=== PATIENT | male | born 1970 | race Caucasian/White ===

== ENCOUNTER 2017-12-11 16:03 | Emergency (ER) | payer OTHER ==
[2017-12-11 16:09] VITALS: BP 146/100; PULSE 103; TEMP 98; BMI 25.0
[2017-12-11] MEDS ORDERED: IBUPROFEN 600 MG TABLET (FP) PO ONE ×2 (16:39→16:46)
[2017-12-11] MEDS ORDERED: DIPHTH,PERTUSS(ACELL),TET 0.5 ML DISP.SYRIN IM ONE (16:39)
--- NOTE | 2017-12-11 16:41 | PDOC ---
History of Present Illness - General Chief Complaint: Injury Stated Complaint: LEFT LEG PAIN JOB INJURY Time Seen by Provider: 12/11/17 16:34 History Source: Patient Exam Limitations: No Limitations - History of Present Illness Initial Comments: 12/11/17 16:36 left great toe, dropped heavy metal ground plate onto foot- was weraing work boots, injury occurred while at work today. 12/11/17 16:41 Occurred: reports: this morning Severity: reports: mild, moderate Pain Location: reports: lower extremity Method of Injury: Yes: direct blow Modifying Factors: improves with: None Associated Symptoms (Fall): denies symptoms Past History - Travel Traveled outside of the country in the last 30 days: No Close contact w/someone who was outside of country & ill: No - Past Medical History Allergies/Adverse Reactions: Allergies Allergy/AdvReac Type Severity Reaction Status Date / Time No Known Allergies Allergy Verified 12/11/17 16:06 Home Medications: Ambulatory Orders Cephalexin Monohydrate [Keflex -] 500 mg PO Q8H #21 capsule 12/11/17 Oxycodone HCl/Acetaminophen [Percocet 5-325 mg Tablet -] 1 - 2 tab PO Q4H PRN # 7 tablet MDD 4 12/11/17 COPD: No - Surgical History Abdominal Surgery: Yes (colon preforation) Neurologic Surgery: Yes (brain bleed) - Suicide/Smoking/Psychosocial Hx Smoking History: Never smoked Have you smoked in the past 12 months: No Information on smoking cessation initiated: No Hx Alcohol Use: No Drug/Substance Use Hx: No Substance Use Type: None Review of Systems - Review of Systems Able to Perform ROS?: Yes Is the patient limited Chadian proficient: Yes Constitutional: Yes: See HPI. No: Symptoms Reported HEENTM: No: Symptoms Reported Respiratory: No: Symptoms reported Musculoskeletal: Yes: Symptoms Reported, See HPI, Joint Pain Integumentary: Yes: Symptoms Reported, See HPI, Bruising (left toe ), Lesions Neurological: Yes: Symptoms reported, See HPI, Tingling (to toe) All Other Systems: Reviewed and Negative *Physical Exam - Vital Signs Last Vital Signs Temp Pulse Resp BP Pulse Ox 98.0 F 103 H 18 146/100 100 12/11/17 16:07 12/11/17 16:07 12/11/17 16:07 12/11/17 16:07 12/11/17 16:07 - Physical Exam General Appearance: Yes: Nourished, Appropriately Dressed, Apparent Distress, Moderate Distress HEENT: positive: ALEXANDER, Normal ENT Inspection, TMs Normal, Pharynx Normal Neck: positive: Tender Musculoskeletal: negative: Normal Inspection, CVA Tenderness Extremity: positive: Tender. negative: Normal Capillary Refill, Normal Inspection, Normal Range of Motion (limited ) Integumentary: positive: Pale, Ecchymosis (circumfrential brusinng and unabke to move toe. ), Bruising (with abrasion- propb burst laceration to dorsum of great toe., ) Neurologic: positive: director of corporate strategy II-XII NML intact, Fully Oriented, Alert, Normal Mood/ Affect, Normal Response, Motor Strength 07/17 ED Treatment Course - RADIOLOGY Radiology Studies Ordered: Category Date Time Status TOE(S) LEFT [RAD] Stat Radiology 12/11/17 16:35 Ordered Comments: comminuted fracture distal phalanx left great toe Progress Note - Progress Note Progress Note: Xray - comminuted fracture of left distal phalanx great toe, with some lacerations equal and fracture. Started on Keflex 500 mg and given first dose here. Tetanus/diphtheria/pertussis booster updated today, given #7 Percocet tablet prescription and will have follow-up at primary care clinic *DC/Admit/Observation/Transfer Diagnosis at time of Disposition: Open fracture of great toe of left foot Qualifiers: Encounter type: initial encounter Phalanx: distal Fracture alignment: nondisplaced Qualified Code(s): S92.425B - Nondisplaced fracture of distal phalanx of left great toe, initial encounter for open fracture - Discharge Dispostion Disposition: HOME Condition at time of disposition: Stable Decision to Admit order: No - Prescriptions Prescriptions: Cephalexin Monohydrate [Keflex -] 500 mg PO Q8H #21 capsule Oxycodone HCl/Acetaminophen [Percocet 5-325 mg Tablet -] 1 - 2 tab PO Q4H PRN # 7 tablet MDD 4 PRN Reason: Pain - Referrals Referrals: Amanuel Glvoer MD [Staff Physician] - - Patient Instructions Printed Discharge Instructions: DI for Toe Fracture Additional Instructions: Rest, ice to area on and off for 15 minutes 4-6 times a day Avoid heavy lifting or exercise until pain and swelling is resolved or until further directed Keep area highly elevated to reduce swelling Use splints/Ryan wrap as directed Followup with orthopedist in one to 2 days if not improving, if significantly improved may wait one week for followup with orthopedist May use ibuprofen 2-200 mg tablets every 6 hours as needed for pain May use Percocet one tablet every [address] Amanuel Glover has orthopedic clinic hours for Medicare/Medicaid Orthopedic referral patients Office is located on [facility] ; call for appointment Clinic is open Wednesdays from 9 AM to 12 noon and afternoon from to 4pm - Post Discharge Activity Forms/Work/School Notes: Back to Work
[2017-12-11] MEDS ORDERED: CEPHALEXIN MONOHYDRATE 500 MG CAPSULE (UD) PO ONE (16:52)
[2017-12-11] MEDS ORDERED: CEPHALEXIN MONOHYDRATE 500 MG CAPSULE (UD) ONE (16:53)
[2017-12-11] MEDS ORDERED: BACITRACIN 15 GM TUBE TOPICAL OINTMENT ONE (17:07)
== END 2017-12-11 17:32 | disposition home or self-care (01) ==
LOC: JERFT 16:03
PROC: 3E0234Z Introduction of Serum, Toxoid and Vaccine into Muscle, Percutaneous Approach (ICD-10-PCS; principal; 2017-12-11)
DX: S92.425B Nondisplaced fracture of distal phalanx of left great toe, initial encounter for open fracture (principal); W20.8XXA Other cause of strike by thrown, projected or falling object, initial encounter; Y93.89 Activity, other specified; Y92.69 Other specified industrial and construction area as the place of occurrence of the external cause; Y99.0 Civilian activity done for income or pay
CPT/HCPCS: 73660-TC-LT-FY; 90715; 99282-25

== ENCOUNTER 2019-11-30 07:31 | Emergency (ER) | payer SELFPAY ==
[2019-11-30 07:35] VITALS: BP 151/94; PULSE 90; TEMP 98.2; BMI 27.4
--- NOTE | 2019-11-30 08:50 | PDOC ---
Attending Attestation - Resident Resident Name: Julio Velasquez - ED Attending Attestation I have performed the following: I have examined & evaluated the patient, The case was reviewed & discussed with the resident, I agree w/resident's findings & plan, Exceptions are as noted - HPI HPI: 11/30/19 10:13 Agree with resident HPI - Physicial Exam PE: 11/30/19 10:15 Agree with resident exam - Medical Decision Making 11/30/19 08:55 48yo M hx ?bowel perforation s/p ex lap presents to the ED with rectal pain No systemic sxs of infection. +dyschezia Exam with perianal induration and tenderness w/o fluctuation at 9 o'clock, but also notable is possible tract in perianal region at 12 o'clock. Could also be scarring from previous incision and drainage. No draining on exam today. Given report of intermittent abd pain, and uninsured pt, plan for CTAP w PO/IV contrast to r/o deep tract or infection or even possible IBD Plan for: -labs -CTAP -IV clinda -reassess Discharge - Discharge Information Condition: Stable - Follow up/Referral - Patient Discharge Instructions - Post Discharge Activity
[2019-11-30 09:03] LABS: BASO % 0.2 % (0-2.0); EOS % 0.2 % (0-4.5); HEMATOCRIT 42.5 % (35.4-49); HEMOGLOBIN 14.6 GM/dL (11.7-16.9); LYMPH % 7.7 % (8-40); MCH 30.4 pg (25.7-33.7); MCHC 34.4 g/dl (32.0-35.9); MEAN CELL VOLUME 88.6 fl (80-96); MONO % 10.5 % (3.8-10.2); NEUT % 81.4 % (42.8-82.8); PLATELET COUNT 258 K/MM3 (134-434); RDW 12.6 % (11.9-15.9); WHITE BLOOD COUNT 11.6 K/mm3 (4.0-10.0)
--- NOTE | 2019-11-30 09:24 | PDOC ---
History of Present Illness - General Chief Complaint: Hemorrhoids Stated Complaint: Hemorrhoids Time Seen by Provider: 11/30/19 08:09 History Source: Patient Exam Limitations: No Limitations - History of Present Illness Initial Comments: 11/30/19 09:19 PCP: None HPI: 48yo M pmh hemorrhoids (thrombosis with incision at OSH previously), colon perforation s/p resection, presenting with 1 day of rectal pain. Patient reports 1 day of rectal pain c/w prior hemorrhoid pain, small amount of bright red blood on the toilet tissue. Tried a topical witch juanita and a sitz bath with only partial relief. The pain is worse when he walks. Normal BMs, no abdominal pain, minimal pain with defecation, no dysuria. Patient is uninsured, does not follow with a PCP or GI. Denies fevers, chills, nausea, vomiting, chest pain, SOB, back pain. All: NKDA Meds: Per chart PMH: As above PSH: As above Past History - Travel History Traveled outside of the country in the last 30 days: No Close contact w/someone who was outside of country & ill: No - Medical History Allergies/Adverse Reactions: Allergies Allergy/AdvReac Type Severity Reaction Status Date / Time No Known Allergies Allergy Verified 12/11/17 16:06 Home Medications: Ambulatory Orders NK [No Known Home Medication] 11/30/19 COPD: No Other medical history: Hemorroids - Surgical History Abdominal Surgery: Yes (colon preforation) Neurologic Surgery: Yes (brain bleed) - Immunization History Immunization Up to Date: No - Psycho-Social/Smoking History Smoking History: Never smoked Have you smoked in the past 12 months: No Information on smoking cessation initiated: No - Substance Abuse Hx (Audit-C & DAST Scrn) How often the patient has a drink containing alcohol: Monthly or less Number of drinks the patient has on a typical day: 1 or 2 How often the patient has six or more drinks on one occasion: Less than monthly Score: In Men: 4 or > Positive; In Women: 3 or > Positive: 2 Screen Result (Pos requires Nsg. Audit-10AR): Negative In the last yr the pt used illegal drug/Rx for NonMed reason: No Score: Yes response is considered Positive: 0 Screen Result (Positive result requires Nsg. DAST-10): Negative Review of Systems - Review of Systems Able to Perform ROS?: Yes Is the patient limited Kazakh proficient: Yes Constitutional: No: Chills, Fever, Weakness HEENTM: No: Recent change in vision, Nose Congestion, Throat Pain Respiratory: No: Cough, Shortness of Breath Cardiac (ROS): No: Chest Pain, Edema, Irregular Heart Rate, Lightheadedness, Palpitations, Chest Tightness ABD/GI: Yes: Rectal Bleeding. No: Abdominal Distended, Abd. Pain w/ defecation, Blood Streaked Bowels, Constipated, Diarrhea, Nausea, Poor Appetite, Poor Fluid Intake, Vomiting, Tarry Stools : No: Burning, Dysuria, Frequency Musculoskeletal: No: Back Pain, Muscle Pain, Muscle Weakness Integumentary: No: Pruritus, Rash Neurological: No: Headache, Numbness, Tingling, Weakness Psychiatric: No: Anxiety, Depression, Change in Appetite Endocrine: No: Increased Thirst, Increased Urine, Change in Weight Hematologic/Lymphatic: No: Anemia, Blood Clots, Easy Bleeding All Other Systems: Reviewed and Negative *Physical Exam - Vital Signs Last Vital Signs Temp Pulse Resp BP Pulse Ox 98.2 F 90 18 151/94 99 11/30/19 07:33 11/30/19 07:33 11/30/19 07:33 11/30/19 07:33 11/30/19 08:21 - Physical Exam 11/30/19 09:24 Vitals reviewed, AFHDS GEN: Well appearing, appears stated age, NAD, comfortable. AAOx3. HEENT: NCAT, EOMI, PERRL. Sclera anicteric, noninjected. No facial asymmetry. Moist mucous membranes. Normal voice. Trachea midline. CV: RRR, S1/S2, no murmurs / rubs / gallops appreciated. LUNG: CTABL, normal work of breathing. No wheezes, rales, rhonchi. No cough. Speaking full sentences. GI: Soft, NTND, +BS, no guarding, no rebound. No masses. RECTUM: Indurated tissue at 11:00 position, small tract without drainage at 12:00 about 1cm from rectum, TTP internal and external at posteriomedial rectum. EXTREMITIES: 2+ distal pulses. No clubbing / cyanosis / edema. No gross deformity in any extremity. SKIN: Warm, dry, no rashes appreciated, non-jaundiced. PSYCH: Normal mood and affect. Cooperative and appropriate. NEURO: CN grossly intact. Moving all extremities well. Normal strength and sensation grossly. ED Treatment Course - LABORATORY CBC & Chemistry Diagram: 11/30/19 08:40 11/30/19 08:40 - ADDITIONAL ORDERS Additional order review: 11/30/19 08:40 RBC 4.80 MCV 88.6 MCHC 34.4 RDW 12.6 MPV 8.0 Neutrophils % 81.4 Lymphocytes % 7.7 L Monocytes % 10.5 H Eosinophils % 0.2 Basophils % 0.2 - RADIOLOGY Radiology Studies Ordered: Category Date Time Status ABDOMEN & PELVIS CT WITH CONTR [CT] Stat CT Scan 11/30/19 08:35 Ordered Medical Decision Making - Medical Decision Making 11/30/19 09:26 48yo M pmh hemorrhoids (thrombosis with incision at OSH previously), colon perforation s/p resection, presenting with 1 day of rectal pain. History notable for hemorroids, poor follow up, no GI, no insurance, h/o bowel perforation. Exam notable for ?fistula tract, ?dep hemorrhoid vs abscess, stable vitals, comfortable, ambulatory. DDX: Hemorrhoid, abscess, fistula - together with history concerning for possible undiagnosed Crohn's disease. - CBC, CMP - CTAP with oral and IV contrast 11/30/19 12:34 - Labs unremarkable - No significant fluid collection or communicating fistulas noted on CT - RX for clindamycin - GI follow up - Warm compressed, sitz baths Dispo: Home Discharge - Discharge Information Problems reviewed: Yes Clinical Impression/Diagnosis: Rectal pain Condition: Stable Disposition: HOME - Admission No - Follow up/Referral - Patient Discharge Instructions Patient Printed Discharge Instructions: DI for Hemorrhoids Additional Instructions: You were seen and evaluated for rectal pain. It is essential that you follow up with GI. A provider has been referred for you. Please continue to do sitz baths with hot water 3-4 times per day. You may also use warm compresses for comfort. A prescription antibiotic has been sent to your pharmacy. Please take this as directed for the full course. You may take tylenol / motrin for pain. Return to the ED for any new or concerning symptoms including but not limited to: fevers / chills, nausea / vomiting, severe pain. - Post Discharge Activity
[2019-11-30 09:34] LABS: ALBUMIN 3.6 g/dl (3.4-5.0); BILIRUBIN,TOTAL 0.7 mg/dL (0.2-1); CALCIUM 9.2 mg/dL (8.5-10.1); CREATININE 0.8 mg/dL (0.55-1.3); POTASSIUM 4.3 mmol/L (3.5-5.1); TOT PROT 7.6 g/dl (6.4-8.2)
[2019-11-30] MEDS ORDERED: CLINDAMYCIN HCL 300 MG CAPSULE PO ONE (12:41)
[2019-11-30] MEDS ORDERED: CLINDAMYCIN HCL 150 MG CAPSULE (FP) ONE (12:47)
== END 2019-11-30 13:00 | disposition home or self-care (01) ==
LOC: JER 07:31
DX: K62.5 Hemorrhage of anus and rectum (principal)
CPT/HCPCS: 36415; 74177-TC; 80053; 85025; 99285-25; Q9967

== ENCOUNTER 2022-09-16 11:53 | Emergency (ER) | payer SELFPAY ==
[2022-09-16 12:00] VITALS: BP 115/84; PULSE 102; RESP 15; TEMP 98.7; BMI 30.2
[2022-09-16] MEDS ORDERED: IBUPROFEN 600 MG TABLET (FP) PO ONE ×2 (13:27→13:40)
== END 2022-09-16 14:29 | disposition home or self-care (01) ==
LOC: JER 11:53 → JERFT 11:53
DX: M25.512 Pain in left shoulder (principal); M19.012 Primary osteoarthritis, left shoulder; G89.29 Other chronic pain
CPT/HCPCS: 73030-TC-LT-FY; 93005; 93010; 99284-25

== ENCOUNTER 2023-02-07 15:47 | Emergency (ER) | payer SELFPAY ==
[2023-02-07 15:58] VITALS: RESP 20; BMI 32.1
[2023-02-07] MEDS ORDERED: chlordiazePOXIDE HCL 25 MG CAPSULE PO ONE (16:17)
[2023-02-07] MEDS ORDERED: FAMOTIDINE 20 MG/50 ML IVPB 20 MG/50 ML MG IVPB ONE ×2 (16:17→16:27)
[2023-02-07] MEDS ORDERED: ONDANSETRON 4 MG/2 ML VIAL IVPUSH ONE (16:17)
[2023-02-07] MEDS ORDERED: LACTATED RINGERS SOLUTION 1000 ML INFUS.BAG IV ONE ×2 (16:18→16:35)
[2023-02-07] MEDS ORDERED: chlordiazePOXIDE HCL 25 MG CAPSULE ONE (16:26)
[2023-02-07] MEDS ORDERED: ONDANSETRON 4 MG/2 ML VIAL ONE (16:26)
[2023-02-07 16:34] LABS: BASO % 0.5 % (0-2.0); EOS % 0.1 % (0-4.5); HEMATOCRIT 46.8 % (35.4-49); HEMOGLOBIN 16.1 GM/dL (11.7-16.9); LYMPH % 18.2 % (8-40); MCH 29.8 pg (25.7-33.7); MCHC 34.4 g/dl (32.0-35.9); MEAN CELL VOLUME 86.7 fl (80-96); MEAN PLT VOLUME 7.5 fl (7.5-11.1); MONO % 7.4 % (3.8-10.2); NEUT % 73.8 % (42.8-82.8); PLATELET COUNT 273 10^3/uL (134-434); RDW 13.3 % (11.9-15.9); WHITE BLOOD COUNT 7.8 K/mm3 (4.0-10.0)
[2023-02-07 16:56] LABS: POTASSIUM 3.7 mmol/L (3.5-5.1)
[2023-02-07 16:59] LABS: ALBUMIN 3.7 g/dl (3.4-5.0); BLOOD UREA NITROGEN 11.7 mg/dL (7-18); CALCIUM 8.6 mg/dL (8.5-10.1)
[2023-02-07 17:02] LABS: CREATININE 0.7 mg/dL (0.55-1.3)
[2023-02-07 17:04] LABS: BILIRUBIN,TOTAL 0.8 mg/dL (0.2-1); TOT PROT 7.5 g/dl (6.4-8.2)
[2023-02-07 17:56] VITALS: BP 144/91; PULSE 92; TEMP 98.1
== END 2023-02-07 18:11 | disposition home or self-care (01) ==
LOC: JER 15:47
PROC: 3E033GC Introduction of Other Therapeutic Substance into Peripheral Vein, Percutaneous Approach (ICD-10-PCS; principal; 2023-02-07)
PROC: 3E033GC Introduction of Other Therapeutic Substance into Peripheral Vein, Percutaneous Approach (ICD-10-PCS; 2023-02-07)
DX: F10.239 Alcohol dependence with withdrawal, unspecified (principal); R11.2 Nausea with vomiting, unspecified; R10.13 Epigastric pain; I10 Essential (primary) hypertension; R00.0 Tachycardia, unspecified; Y90.9 Presence of alcohol in blood, level not specified
CPT/HCPCS: 36415; 80053; 83690; 83735; 85025; 93005; 93010; 99284-25